=== PATIENT | female | born 1975 | race African-American/Black ===

== ENCOUNTER 2022-10-21 04:15 | Emergency (ER) | payer SELFPAY ==
[~2022-10-21] VITALS: Ht 172.7 cm; Wt 120.0 kg
[2022-10-21 05:11] LABS: BASOPHILS % 1.1 % (0.0-2.0); EOSINOPHILS % 3.4 % (0.0-5.0); HEMATOCRIT. 32.6 % (36.0-48.0); HEMOGLOBIN. 10.5 g/dL (12.0-16.0); LYMPHOCYTES % 34.5 % (20.0-50.0); MEAN CORPUSCULAR HEMOGLOBIN 23.1 pg (28.0-32.0); MEAN CORPUSCULAR VOLUME 71.4 fL (81.0-99.0); MEAN PLATELET VOLUME 7.9 fl (7.4-10.4); MONOCYTES % 7.6 % (2.0-8.0); NEUTROPHILS % 53.4 % (40.0-76.0); PLATELET 355 x1000/uL (130-400); RED BLOOD CELL COUNT 4.56 mill/uL (4.2-5.4); RED CELL DISTRIBUTION WIDTH 17.9 % (11.6-14.6)
[2022-10-21] MEDS ORDERED: KETOROLAC 60MG/2ML VIAL IM ONE (05:15)
[2022-10-21 05:21] LABS: CHLORIDE 104 mEq/L (98-107)
[2022-10-21 05:35] LABS: HCG SCREEN NEGATIVE
[2022-10-21 05:53] LABS: CLARITY URINE CLOUDY (CLEAR); COLOR URINE ORANGE (YELLOW); KETONES URINE NEGATIVE (NEGATIVE); LEUKOCYTE ESTERASE URINE NEGATIVE (NEGATIVE); NITRITE URINE NEGATIVE (NEGATIVE); OCCULT BLOOD URINE 3+ (NEGATIVE); PROTEIN URINE 1+ (NEGATIVE); SPECIFIC GRAVITY URINE 1.024 (1.005-1.030); UROBILINOGEN URINE 0.2 E.U./dL (0.2-1.0)
[2022-10-21] MEDS ORDERED: IBUP-2030 PO (07:57)
[2022-10-21] MEDS ORDERED: KETOROLAC 60MG/2ML VIAL IM SCH (08:15)
[2022-10-21 08:17] VITALS: BP 167/109
== END 2022-10-21 08:24 | disposition home or self-care (01) ==
LOC: ER 04:15
DX: D25.9 Leiomyoma of uterus, unspecified (principal); N94.6 Dysmenorrhea, unspecified; I10 Essential (primary) hypertension
CPT/HCPCS: 36415; 76830; 76856; 80053; 81003; 81025; 84703; 85025; 96372; 99285; J1885; Z7610

== ENCOUNTER 2025-06-11 13:29 | Emergency (ER) | payer SELFPAY ==
[~2025-06-11] VITALS: Ht 172.7 cm; Wt 145.0 kg
[~2025-06-11 13:29] MED LIST: IBUP-2030 PO
[2025-06-11 13:32] VITALS: BP 197/115; PULSE 91; RESP 14; TEMP 98.1; O2SAT 95
[2025-06-11 16:15] LABS: PLATELET 262 x1000/uL (130-400); RED BLOOD CELL COUNT 4.88 mill/uL (4.2-5.4); RED CELL DISTRIBUTION WIDTH 16.3 % (11.6-14.6)
[2025-06-11 16:42] LABS: HCG SCREEN NEGATIVE
== END 2025-06-11 16:50 | disposition home or self-care (01) ==
LOC: ER 13:29
DX: F10.129 Alcohol abuse with intoxication, unspecified (principal); I10 Essential (primary) hypertension; Z79.1 Long term (current) use of non-steroidal anti-inflammatories (NSAID); Y90.9 Presence of alcohol in blood, level not specified
CPT/HCPCS: 36415; 80320; 84703; 85027; 99283; G0480